=== PATIENT | male | born 1965 | race Caucasian/White ===

== ENCOUNTER → 2020-11-21 10:13 | Outpatient (CLI) | payer OTHER, SELFPAY ==
[2020-11-21 11:44] LABS: Add Manual Diff / Slide Review NO; Basophils Absolute Auto 100 /uL (0-100); Basophils Percent Auto 0.4 % (0-2); Eosinophils Absolute Auto 300 /uL (0-450); Eosinophils Percent Auto 1.7 % (2-4); Hematocrit 46.1 % (41-53); Hemoglobin 15.8 g/dL (13.5-17.5); Lymphocytes Absolute Auto 2400 /uL (1100-4500); Lymphocytes Percent Auto 14.3 % (25-40); Mean Corpuscular HGB Conc 34.3 % (30-36); Mean Corpuscular Hemoglobin 33.2 PG (26-34); Mean Corpuscular Volume 96.8 fL (80-100); Monocytes Absolute Auto 1200 /uL (0-900); Monocytes Percent Auto 7.4 % (3-14); Neutrophils Absolute Auto 12900 /uL (1500-7000); Neutrophils Percent Auto 76.2 % (50-75); Platelet Count 334 X10^3/uL (150-400); Red Blood Cell Count 4.76 X10^6/uL (4.5-5.9); Red Cell Distribution Width 12.9 % (11.6-14.8); White Blood Cell Count 16.9 X10^3/uL (4.5-11.0)
[2020-11-21 12:23] LABS: Alanine Aminotransferase 16 IU/L (<50); Albumin 4.7 g/dL (3.5-5.0); Albumin Globulin Ratio 1.4 (1.0-2.8); Alkaline Phosphatase 126 U/L (38-126); Aspartate Aminotransferase 26 IU/L (17-59); BUN Creatinine Ratio 23.6 (6-22); Bilirubin Total 0.3 mg/dL (0.2-1.3); Blood Urea Nitrogen 26 mg/dL (9-20); Carbon Dioxide 27 mmol/L (22-32); Chloride 99 mmol/L (98-107); Cholesterol 192 mg/dL (140-199); Estimated Glomerular Filt Rate > 60.0 mL/min (>60); Globulin 3.4 g/dL (1.7-4.1); Glucose 100 mg/dL (70-100); HDL Cholesterol 76 mg/dL (40-60); HEMOLYSIS < 15 (0-50); LDL Cholesterol Calculated 72 mg/dL (<100); Potassium 4.5 mmol/L (3.4-5.1); Sodium 133 mmol/L (137-145); Total Protein 8.1 g/dL (6.3-8.2); Triglycerides 220 mg/dL (35-150)
[2020-11-21 12:24] LABS: Vitamin D 25 Hydroxy (D3) 15.8 ng/mL (30.0-100.0)
[2020-11-21 12:54] LABS: Prostate Specific Antigen Scrn 0.407 ng/mL (0.1-4.0)
[2020-11-21 13:13] LABS: Vitamin B12 496 pg/mL (239-931)
== END ==
PROVIDERS: PCP Student in an Organized Health Care Education/Training Program; Referring Provider Student in an Organized Health Care Education/Training Program; Visit Provider Student in an Organized Health Care Education/Training Program
DX: Z90.49 Acquired absence of other specified parts of digestive tract (principal); Z13.220 Encounter for screening for lipoid disorders; Z83.2 Family history of diseases of the blood and blood-forming organs and certain disorders involving the immune mechanism; Z12.5 Encounter for screening for malignant neoplasm of prostate; K51.90 Ulcerative colitis, unspecified, without complications
CPT/HCPCS: 36415; 80053; 80061; 82306; 82607; 85025; G0103

== ENCOUNTER → 2020-12-28 10:47 | Outpatient (CLI) | payer OTHER, SELFPAY ==
[2020-12-28 16:15] LABS: Vitamin D 25 Hydroxy (D3) < 12.8 ng/mL (30.0-100.0)
== END ==
PROVIDERS: PCP Student in an Organized Health Care Education/Training Program; Referring Provider Student in an Organized Health Care Education/Training Program; Visit Provider Student in an Organized Health Care Education/Training Program
DX: E55.9 Vitamin D deficiency, unspecified (principal)
CPT/HCPCS: 36415; 82306

== ENCOUNTER → 2021-03-20 09:51 | Outpatient (CLI) | payer OTHER, SELFPAY ==
[2021-03-20 12:05] LABS: Vitamin D 25 Hydroxy (D3) 37.9 ng/mL (30.0-100.0)
[2021-03-20 12:42] LABS: Folate 6.4 ng/mL (2.76-20.0)
[2021-03-21 19:01] LABS: Calcium 9.3 mg/dL (8.7-10.2); Parathyroid Hormone, Intact 45 pg/mL (15-65)
== END ==
PROVIDERS: PCP Student in an Organized Health Care Education/Training Program; Referring Provider Student in an Organized Health Care Education/Training Program; Visit Provider Student in an Organized Health Care Education/Training Program
DX: E72.11 Homocystinuria (principal); E55.9 Vitamin D deficiency, unspecified
CPT/HCPCS: 36415; 82306; 82310; 82746; 83970

== ENCOUNTER → 2022-03-28 10:56 | Outpatient (CLI) | payer OTHER, SELFPAY ==
[2022-03-28 13:21] LABS: HEMOLYSIS < 15 (0-50)
[2022-03-28 20:16] LABS: Vitamin D 25 Hydroxy (D3) 23.2 ng/mL (30.0-100.0)
[2022-03-29 10:26] LABS: Sodium 138 mmol/L (137-145)
[2022-03-29 10:27] LABS: Potassium 3.7 mmol/L (3.4-5.1)
[2022-03-29 10:28] LABS: Chloride 102 mmol/L (98-107)
[2022-03-29 10:29] LABS: Carbon Dioxide 28 mmol/L (22-32)
[2022-03-29 10:33] LABS: Blood Urea Nitrogen 11 mg/dL (9-20)
[2022-03-29 10:35] LABS: BUN Creatinine Ratio 12.5 (6-22); Estimated Glomerular Filt Rate > 60 mL/min (>60)
[2022-03-29 10:36] LABS: Glucose 80 mg/dL (70-100)
[2022-03-29 10:37] LABS: Calcium 9.4 mg/dL (8.4-10.2)
== END ==
PROVIDERS: PCP Student in an Organized Health Care Education/Training Program; Referring Provider Student in an Organized Health Care Education/Training Program; Visit Provider Student in an Organized Health Care Education/Training Program
DX: E55.9 Vitamin D deficiency, unspecified (principal); E87.1 Hypo-osmolality and hyponatremia; K51.90 Ulcerative colitis, unspecified, without complications; Z12.5 Encounter for screening for malignant neoplasm of prostate
CPT/HCPCS: 36415; 80048; 82306; G0103

== ENCOUNTER 2023-03-24 06:32 | Emergency (ER) | payer MEDICAID, SELFPAY ==
[2023-03-24 06:44] VITALS: BP 103/67; PULSE 84; RESP 16; TEMP 36.8; O2SAT 97; BMI 19.9
--- NOTE | 2023-03-24 06:51 | DI.US.S_ITS ---
PROCEDURE: US PERIPH VENOUS LOW EXTREM RT INDICATIONS: swelling TECHNIQUE: Real-time imaging, as well as color and pulse Doppler interrogation, were performed of the lower extremity deep veins from the inguinal ligament to the popliteal fossa. COMPARISON: None. FINDINGS: The common femoral, femoral and popliteal veins are normally compressible, and free of intraluminal thrombus. Color and pulse Doppler demonstrate normal phasic intraluminal flow. There is normal augmentation response to distal compression maneuver. IMPRESSION: Negative right lower extremity duplex venous ultrasound for DVT. Dictated by: Legihton Smith M.D. on 03/24/2023 at 8:21 Approved by: Leighton Smith M.D. on 03/24/2023 at 8:22
--- NOTE | 2023-03-24 06:51 | DI.RAD.S_ITS ---
PROCEDURE: XR CHEST 1V INDICATIONS: chest pain TECHNIQUE: One view of the chest was acquired. COMPARISON: None. FINDINGS: Surgical changes and devices: None. Lungs and pleura: Lungs are clear. No pleural effusions or pneumothorax. Mediastinum: Mediastinal contours appear normal. Heart size is normal. Bones and chest wall: No suspicious bony lesions. Overlying soft tissues appear unremarkable. IMPRESSION: No acute cardiopulmonary abnormality. Approved by: Sim Magana M.D. on 03/24/2023 at 8:06
[2023-03-24 07:00] VITALS: BP 112/69; PULSE 81; O2SAT 97
[2023-03-24] MEDS: SODIUM CHLORIDE 0.9% 1,000 ML 150 ML IV (07:09)
[2023-03-24 07:17] LABS: Add Manual Diff / Slide Review NO; Basophils Absolute Auto 100 /uL (0-100); Eosinophils Absolute Auto 300 /uL (0-450); Eosinophils Percent Auto 3.1 % (2-4); Hematocrit 30.5 % (41-53); Hemoglobin 10.5 g/dL (13.5-17.5); Lymphocytes Absolute Auto 1800 /uL (1100-4500); Mean Corpuscular HGB Conc 34.5 % (30-36); Mean Corpuscular Hemoglobin 35.6 PG (26-34); Mean Corpuscular Volume 103.3 fL (80-100); Monocytes Absolute Auto 900 /uL (0-900); Monocytes Percent Auto 9.7 % (3-14); Neutrophils Absolute Auto 6400 /uL (1500-7000); Neutrophils Percent Auto 67.2 % (50-75); Platelet Count 257 X10^3/uL (150-400); Red Blood Cell Count 2.95 X10^6/uL (4.5-5.9); Red Cell Distribution Width 13.7 % (11.6-14.8); White Blood Cell Count 9.5 X10^3/uL (4.5-11.0)
[2023-03-24 07:19] LABS: INR 0.9 (0.9-1.3); Prothrombin Time 9.9 SECONDS (10.1-12.7)
[2023-03-24 07:22] LABS: PTT Partial Thromboplastin Tim 28 SECONDS (26-36)
[2023-03-24 07:23] LABS: Alanine Aminotransferase 22 IU/L (<50); Albumin 3.5 g/dL (3.5-5.0); Albumin Globulin Ratio 1.3 (1.0-2.8); Alkaline Phosphatase 78 U/L (38-126); Aspartate Aminotransferase 34 IU/L (17-59); BUN Creatinine Ratio 16.5 (6-22); Bilirubin Total 0.2 mg/dL (0.2-1.3); Blood Urea Nitrogen 14 mg/dL (9-20); Calcium 8.7 mg/dL (8.4-10.2); Carbon Dioxide 25 mmol/L (22-32); Chloride 105 mmol/L (98-107); Creatine Kinase 62 U/L (55-170); Estimated Glomerular Filt Rate > 60 mL/min (>60); Globulin 2.6 g/dL (1.7-4.1); Glucose 87 mg/dL (70-100); HEMOLYSIS < 15 (0-50); Lipase 174 U/L (23-300); Potassium 3.8 mmol/L (3.4-5.1); Sodium 136 mmol/L (137-145); Total Protein 6.1 g/dL (6.3-8.2)
[2023-03-24 07:30] VITALS: BP 120/78; PULSE 76; RESP 18; O2SAT 97
[2023-03-24 07:32] LABS: NT-proBNP (BNP-Adult 18+) 462 pg/mL (<125)
[2023-03-24 07:34] LABS: Troponin I < 0.012 ng/mL (0.01-0.034)
--- NOTE | 2023-03-24 07:52 | ED.EXTPRO ---
HPI - Extremity Problem General Chief complaint: Extremity Problem,Nontraumatic Stated complaint: rt foot swollen rt and left leg swollen Time Seen by Provider: 03/24/23 06:41 Source: patient Mode of arrival: Ambulatory History of Present Illness HPI Narrative: 57-year-old male smoker with history of colon CA, ulcerative colitis, total colectomy, varicose veins, vitamin D deficiency and prior heavy alcohol abuse presents with some relatively painless swelling in his right lower extremity over the past week or so. Additionally he states he is had some swelling in his left leg as well. He denies any dizziness, weakness or lightheadedness. He denies chest pain or shortness of breath. He denies any exertional fatigue or exercise intolerance. He denies nausea, vomiting or diarrhea. He denies any weight gain. He does state that he has been on his feet much more recently due to his preparing his home to be sold. He denies any trauma or injury nor any recent travel. He denies fever or chills. He states that a few years ago he had a wellness check which resulted in further testing and the suggestion that he had some poor blood flow in his legs. Related Data Previous Rx's Medication Instructions Recorded furosemide 40 mg tablet (Lasix) 40 mg PO DAILY #5 tabs 03/24/23 Allergies Allergy/AdvReac Type Severity Reaction Status Date / Time Sulfa (Sulfonamide Allergy Mild RASH, LONG Verified 03/28/22 10:30 Antibiotics) TIME ALLERGY bee pollen Allergy Unknown Verified 03/28/22 10:30 Review of Systems Review of Systems Narrative: GENERAL: Denies chills, fatigue, malaise, fever, sweats. HEENT: Denies sinus pain, ear pain, sore throat, difficulty swallowing, dizziness. RESPIRATORY: Denies dyspnea, cough, wheezing, hemoptysis, sputum. CARDIOVASCULAR: See HPI GASTROINTESTINAL: Denies nausea, vomiting, abdominal pain, diarrhea, constipation, melena. : Denies dysuria, frequency, incontinence, hematuria, urinary retention. MUSCULOSKELETAL: denies weakness, joint pain, or bony pain SKIN: See HPI NEUROLOGIC: Denies weakness, headache, numbness, change in speech, confusion, seizures, incoordination. PSYCHIATRIC: No concerning psychosocial issues. 12 point review of systems is negative except for those stated above Patient History Medical History Colorectal cancer Homocysteinemia Surgical History History of total colectomy Social History Smoking Status: Current every day smoker Smoking Status: Current every day smoker alcohol intake frequency: 3 or more drinks per day Substance Use Type: does not use Exam Narrative Exam Narrative: GENERAL: [57] year old patient appears stated age. Well-developed patient, in mild distress. HEAD: Atraumatic. Normocephalic. EYES: Pupils equal round and reactive. Extraocular motions intact. No scleral icterus. No injection or drainage. ENT: Nose without bleeding, purulent drainage. Throat without erythema, tonsillar hypertrophy or exudate. Airway patent. NECK: Trachea midline. Non tender CARDIOVASCULAR: Regular rate and rhythm without murmurs, gallops, or rubs. RESPIRATORY: Clear to auscultation. Breath sounds equal bilaterally. No wheezes, rales, or rhonchi. GASTROINTESTINAL: Abdomen soft, non-tender, nondistended. EXTREMITIES: Bilateral lower extremity 1+ pitting edema. No redness, no pain, no fluctuance or induration, no breaks in the skin. Cap refill is intact, dorsalis pedis pulses are easily found with bedside Doppler. He does have some numbness in his toes. BACK: Nontender without deformity or crepitance. No flank tenderness. NEURO: AOx3. SKIN: No rash or erythema of visible areas Initial Vital Signs Initial Vital Signs: Vital Signs Temperature 98.2 F 03/24/23 06:44 Pulse Rate 84 03/24/23 06:44 Respiratory Rate 16 03/24/23 06:44 Blood Pressure 103/67 03/24/23 06:44 Pulse Oximetry 97 03/24/23 06:44 Oxygen Delivery Method Room Air 03/24/23 06:44 Course Orders Ordered: ED Orders 03/24/23 06:51 US periph venous low extrem rt Stat XR chest 1V Stat EKG-12 Lead Stat 03/24/23 07:02 Complete Blood Count AUTO DIFF Stat Comprehensive Metabolic Panel Stat Lipase Stat NT-proBNP (BNP-Adult 18+) Stat PTT Partial Thromboplastin Juan Carlos Stat Prothrombin Time INR Stat Troponin & CK Cardiac Panel Stat Discontinued Medications Sodium Chloride (Normal Saline 0.9%) 1,000 mls @ 150 mls/hr IV CONT TANIA Last Admin: 03/24/23 07:09 Dose: 150 mls/hr Documented By: Vital Signs Vital signs: Vital Signs - 8 hr 03/24/23 06:44 03/24/23 07:00 03/24/23 07:00 Temperature 98.2 F Pulse Rate 84 81 Respiratory Rate 16 Blood Pressure 103/67 112/69 Pulse Oximetry 97 97 Oxygen Delivery Method Room Air Room Air 03/24/23 07:30 03/24/23 07:30 03/24/23 08:00 Temperature Pulse Rate 76 Respiratory Rate 18 Blood Pressure 120/78 122/83 Pulse Oximetry 97 Oxygen Delivery Method Room Air 03/24/23 08:00 Temperature Pulse Rate 82 Respiratory Rate 18 Blood Pressure Pulse Oximetry 98 Oxygen Delivery Method Room Air MDM - Extremity (Nontraumatic) Lab Data 03/24/23 07:02 03/24/23 07:02 Labs: Lab Results 03/24/23 03/24/23 03/24/23 Range/Units 07:02 07:02 07:02 WBC 9.5 (4.5-11.0) X10^3/uL RBC 2.95 L (4.5-5.9) X10^6/uL Hgb 10.5 L (13.5-17.5) g/dL Hct 30.5 L (41-53) % MCV 103.3 H (80-100) fL MCH 35.6 H (26-34) PG MCHC 34.5 (30-36) % RDW 13.7 (11.6-14.8) % Plt Count 257 (150-400) X10^3/uL Neut % (Auto) 67.2 (50-75) % Lymph % (Auto) 19.0 L (25-40) % [place] % (Auto) 9.7 (3-14) % Eos % (Auto) 3.1 (2-4) % Baso % (Auto) 1.0 (0-2) % Neut # (Auto) 6400 (0008-7393) /uL Lymph # (Auto) 1800 (5591-6809) /uL [place] # (Auto) 900 (0-900) /uL Eos # (Auto) 300 (0-450) /uL Baso # (Auto) 100 (0-100) /uL PT 9.9 L (10.1-12.7) SECONDS INR 0.9 (0.9-1.3) APTT 28 (26-36) SECONDS Sodium 136 L (137-145) mmol/L Potassium 3.8 (3.4-5.1) mmol/L Chloride 105 (98-107) mmol/L Carbon Dioxide 25 (22-32) mmol/L BUN 14 (9-20) mg/dL Creatinine 0.85 (0.66-1.25) mg/dL Estimated GFR > 60 (>60) mL/min BUN/Creatinine Ratio 16.5 (6-22) Glucose 87 (70-100) mg/dL Calcium 8.7 (8.4-10.2) mg/dL Total Bilirubin 0.2 (0.2-1.3) mg/dL AST 34 (17-59) IU/L ALT 22 (<50) IU/L Alkaline Phosphatase 78 (38-126) U/L Total Creatine Kinase 62 (55-170) U/L CK-MB (CK-2) TNP CK-MB (CK-2) Rel Index TNP Troponin I < 0.012 (0.01-0.034) ng/mL NT-Pro-B Natriuret Pep (<125) pg/mL Total Protein 6.1 L (6.3-8.2) g/dL Albumin 3.5 (3.5-5.0) g/dL Globulin 2.6 (1.7-4.1) g/dL Albumin/Globulin Ratio 1.3 (1.0-2.8) Lipase 174 (23-300) U/L 03/24/23 Range/Units 07:02 WBC (4.5-11.0) X10^3/uL RBC (4.5-5.9) X10^6/uL Hgb (13.5-17.5) g/dL Hct (41-53) % MCV (80-100) fL MCH (26-34) PG MCHC (30-36) % RDW (11.6-14.8) % Plt Count (150-400) X10^3/uL Neut % (Auto) (50-75) % Lymph % (Auto) (25-40) % [place] % (Auto) (3-14) % Eos % (Auto) (2-4) % Baso % (Auto) (0-2) % Neut # (Auto) (6851-2394) /uL Lymph # (Auto) (6584-2099) /uL [place] # (Auto) (0-900) /uL Eos # (Auto) (0-450) /uL Baso # (Auto) (0-100) /uL PT (10.1-12.7) SECONDS INR (0.9-1.3) APTT (26-36) SECONDS Sodium (137-145) mmol/L Potassium (3.4-5.1) mmol/L Chloride (98-107) mmol/L Carbon Dioxide (22-32) mmol/L BUN (9-20) mg/dL Creatinine (0.66-1.25) mg/dL Estimated GFR (>60) mL/min BUN/Creatinine Ratio (6-22) Glucose (70-100) mg/dL Calcium (8.4-10.2) mg/dL Total Bilirubin (0.2-1.3) mg/dL AST (17-59) IU/L ALT (<50) IU/L Alkaline Phosphatase (38-126) U/L Total Creatine Kinase (55-170) U/L CK-MB (CK-2) CK-MB (CK-2) Rel Index Troponin I (0.01-0.034) ng/mL NT-Pro-B Natriuret Pep 462 H (<125) pg/mL Total Protein (6.3-8.2) g/dL Albumin (3.5-5.0) g/dL Globulin (1.7-4.1) g/dL Albumin/Globulin Ratio (1.0-2.8) Lipase (23-300) U/L MDM Narrative Medical decision making narrative: CC: 57-year-old male with bilateral lower extremity swelling Complicating co-morbidities: History of Heavy alcohol abuse, age greater than 50, colon cancer Data collected from: Patient Medical records reviewed: Prior notes reviewed in our EMR Differential considered, but not limited to: DVT versus cellulitis versus renal failure versus heart failure versus dependent edema versus other Exam documented above, pertinent findings include: Heart rate regular, lungs clear and nonlabored. Abdomen soft and nontender. Bilateral lower extremity pitting edema, warm, pink and dry, cap refill intact, Doppler pulses Lab Test results independently reviewed as above. Pertinent findings: No leukocytosis or left shift. Minimal relative anemia, platelets within normal, MCV elevated at 103.3. Electrolytes and renal function within normal. BNP slightly elevated Independently reviewed EKG: [0741] EKG is normal sinus rhythm rate [78 ] and free of any signs of ischemia or ectopy. No ST segmental elevation or depression. No T wave inversions Imaging studies independently reviewed: No evidence of DVT Discussion: Very pleasant gentleman with a week or so of increasing swelling and lower extremities in the absence of fever, chills, shortness of breath or fatigue. He has no trauma or injury. Multiple diagnoses considered as noted above. Given bilateral presentation considerations would include dependent edema which is certainly considered given his report of being on his feet and more active than normal over the past week or so. Also renal failure, heart failure, liver failure considered. He does have a strong history of alcohol abuse and an elevated BNP raising the question of possible mild early CHF. In addition to recommending elevating his lower extremities I did a short course of Lasix. There is no respiratory distress or indication for further emergent evaluation in this regard. Ultrasound shows no evidence of DVT. Cellulitis considered but thought extremely unlikely given lack of fever or chills, lack of pain, redness, warmth or other classic findings. Patient is stable and appropriate for discharge at this time. He plans to call his primary care provider later today to schedule an appointment later this week. Return precautions including increasing pain, redness, warmth, systemic complaints such as fever or chills, difficulty breathing or other bothersome symptoms Disposition: see below, along with detailed discharge instructions that have been reviewed with patient as well as indications for ED re-evaluation and additional outpatient follow up Discharge Plan Departure Patient Disposition: Home Clinical Impression: Bilateral leg edema Instructions: DI for Peripheral Edema -- Bilateral Activity Restrictions/Additional Instructions: *You have been diagnosed with [bilateral lower extremity edema. As we discussed your history and physical exam are reassuring. Ultrasound shows no evidence of clot. The swelling could very well be due to being on your feet more than normal.] *What to do: *Please continue to take your regular medications as directed. [x ] New medication prescriptions sent to your pharmacy: [ [facility]] [ ] New medication written as a paper prescription [ ] No new medications given *Please follow up with your primary care provider in 2-3 days, call for an appointment. Let them know you were seen in the Emergency Department and that we ask that you be seen in follow up. We will electronically transmit a record of today's note if your PCP is in our system *Return to Emergency Department if you should have any new, worsening or concerning symptoms, such as [fever greater than 101 F, shaking chills, worsening pain, persistent vomiting or other bothersome symptoms] Prescriptions: New furosemide [Lasix] 40 mg tablet 40 mg PO DAILY Qty: 5 0RF Referrals: Tres Alcala MD [Primary Care Provider] - Stand Alone Forms: Patient Portal/API
[2023-03-24 08:00] VITALS: BP 122/83; PULSE 82; RESP 18; O2SAT 98
== END 2023-03-24 08:18 | disposition home or self-care (01) ==
PROVIDERS: Emergency Medicine; Emergency Provider Emergency Medicine; PCP Student in an Organized Health Care Education/Training Program
DX: R60.0 Localized edema (principal)
CPT/HCPCS: 36415; 71045; 80053; 82550; 83690; 83880; 84484; 85025; 85610; 85730; 93005; 93010; 93971; 99284

== ENCOUNTER → 2023-04-16 11:55 | Outpatient (CLI) | payer MEDICAID, SELFPAY ==
[2023-04-16 13:17] LABS: Reticulocyte Count, Percent 1.8 % (0.9-2.6)
[2023-04-16 13:28] LABS: HEMOLYSIS < 15 (0-50); Iron 141 ug/dL (49-181)
[2023-04-16 13:39] LABS: Percent Iron Saturation 44 % (20-50); Total Iron Binding Capacity 322 ug/dL (261-462); Transferrin 250 mg/dL (206-381)
[2023-04-16 13:55] LABS: TSH w/ Reflex to FT4 0.53 uIU/mL (0.47-4.68)
[2023-04-16 13:58] LABS: Ferritin 215 ng/mL (18-464)
[2023-04-16 14:29] LABS: Folate 7.1 ng/mL (2.76-20.0); Vitamin B12 677 pg/mL (239-931)
== END ==
PROVIDERS: PCP Nurse Practitioner Family; Referring Provider Nurse Practitioner Family; Visit Provider Nurse Practitioner Family
DX: D64.9 Anemia, unspecified (principal)
CPT/HCPCS: 36415; 82607; 82728; 82746; 83540; 83550; 84443; 85045

== ENCOUNTER → 2023-04-25 09:16 | Outpatient (CLI) | payer MEDICAID, SELFPAY ==
--- NOTE | 2023-04-25 | DI.US.S_ITS ---
PROCEDURE: US ABDOMEN LIMITED INDICATIONS: ALCOHOL USE TECHNIQUE: Real-time focused scanning was performed of the abdomen, with image documentation. COMPARISON: [facility], CT, ABDOMEN/PELVIS WITH CONTRAST, 01/12/2013, 21:30. [facility], CT, ABDOMEN/PELVIS WITH CONTRAST, 07/02/2017, 16:32. FINDINGS: Liver measures 12 cm. Echogenicity is within normal limits. Multiple hyperechoic lesions, largest anterior to the caudate lobe measuring about 10 mm. A right lobe lesion measures about 8 mm. Gallbladder is within normal limits. No focal tenderness. CBD measures 5 mm. Pancreas is partially seen, unremarkable. No pathologic free fluid. IMPRESSION: No acute sonographic abnormality. Overall liver echogenicity is within normal limits. Multiple small hyperechoic lesions throughout the liver, most commonly benign cavernous hemangiomas. Some of which may have been present on prior limited single phase CT. If there is concern for chronic liver disease or malignancy, liver MRI could be ordered. Dictated by: Star Ma M.D. on 04/25/2023 at 14:52 Approved by: Star Ma M.D. on 04/25/2023 at 14:55
== END ==
PROVIDERS: PCP Nurse Practitioner Family; Referring Provider Nurse Practitioner Family; Visit Provider Nurse Practitioner Family
DX: K76.9 Liver disease, unspecified (principal); F10.90 Alcohol use, unspecified, uncomplicated
CPT/HCPCS: 76705

== ENCOUNTER → 2023-05-01 08:10 | Outpatient (CLI) | payer MEDICAID, SELFPAY ==
--- NOTE | 2023-05-01 08:14 | DI.ECHO.S_ITS ---
[facility] +---------+ : : [address] [place] : : : : [id number] : : : : Phone: [phone]+ Echocardiogram Report + + :Name: MARY DE LA GARZA Study Date: 05/01/2023 Height: 69 in : :[facility] ReadingLocation: Weight: 133 lb : : Gender: Male BSA: 1.7 m2 : :: 1965 Age: 57 yrs BP: 112/76 mmHg: :Reason For Study: Localized Edema : :Ordering Physician: Letitia, : :Cecile Performed By: Hanna Valentino : :Referring: GARRY RILEY : + + Interpretation Summary The ejection fraction is estimated to be 55-60%. There is no significant valvular heart disease. Procedure: A two-dimensional transthoracic echocardiogram with color flow and Doppler was performed. The study quality was technically adequate. There is no prior echocardiogram noted for this patient. The patient was in normal sinus rhythm during the exam. Left Ventricle: The left ventricle is normal in size. The ejection fraction is estimated to be 55-60%. There are no obvious focal wall motion abnormalities noted but poor endocardial definition reduces the sensitivity for the detection of such. Diastolic parameters suggest a pseudonormalization pattern, consistent with probable elevated filling pressures. Right Ventricle: The right ventricle is normal size. The right ventricular systolic function is normal. Atria: The left atrial size is normal. Right atrial size is normal. There is no Doppler evidence for an interatrial shunt. Mitral Valve: The mitral valve is normal. There is no mitral valve stenosis. There is trace mitral regurgitation. Aortic Valve: The aortic valve is trileaflet. The aortic valve opens well. There is no aortic valve stenosis. No aortic regurgitation is present. Tricuspid Valve: The tricuspid valve is normal. There is no tricuspid stenosis. There is trace tricuspid regurgitation. The right ventricular systolic pressure is estimated to be at least 21 mmHg based on an estimated right atrial pressure of 3 mm Hg. Pulmonic Valve: The pulmonic valve leaflets are thin and pliable; valve motion is normal. There is no pulmonic valvular stenosis. There is no pulmonic valvular regurgitation. Great Vessels: The aortic root is normal size. The ascending aorta is normal in size. The pulmonary artery is normal size. The IVC is of normal diameter and collapses greater than 50% with a sniff. This suggests a low right atrial pressure of 3 mm Hg. Pericardium/ Pleura There is no pericardial effusion. MMode/2D Measurements & Calculations LVIDd: 4.6 cm LVOT diam: 2.1 cm LVIDs: 3.2 cm Ao root diam: 3.7 cm FS: 30.4 % asc Aorta Diam: 3.5 cm IVSd: 1.0 cm LVPWd: 1.1 cm LV henderson. diameter/BSA (cm/m^2): 2.6 LV sys. diameter/BSA (cm/m^2): 1.8 LA A2 area: 17.5 cm2 RA long axis: 5.0 cm LA A4 area: 15.7 cm2 RA area: 14.7 cm2 LA length (vol): 5.3 cm RA vol: 37.0 ml LA vol: 43.8 ml RA : 21.3 ml/m2 LA vol index: 25.2 ml/m2 RVD1 (basal): 3.8 cm LVLs ap4: 6.2 cm LVLd ap2: 7.0 cm TAPSE_phl: 2.5 cm LVLs ap2: 6.2 cm Doppler Measurements & Calculations Ao V2 max: 102.0 cm/sec LVOT Max Anthony: 99.8 cm/sec Ao V2 mean: 77.5 cm/sec LV V1 max P.0 mmHg Ao max P.0 mmHg LV V1 VTI: 19.4 cm Ao mean P.0 mmHg CHANCE(I,D): 2.9 cm2 Ao V2 VTI: 23.1 cm CHANCE(V,D): 3.4 cm2 sev ratio: 0.84 CHANCE indexed to BSA (cm^2/m^2): 1.7 MV E max anthony: 81.2 cm/sec TR max anthony: 214.0 cm/sec MV A max anthony: 65.8 cm/sec TR max P.4 mmHg MV E/A: 1.2 PA V2 max: 77.2 cm/sec Med Peak E' Anthony: 8.1 cm/sec PA V2 mean: 59.2 cm/sec E/E' med: 10.0 PA mean P.0 mmHg Lat Peak E' Anthony: 10.6 cm/sec PA pr(Accel): 6.5 mmHg E/E' lat: 7.7 E/e' average: 8.8 MV dec time: 0.18 sec SV(LVOT): 67.2 ml AV VR_phl: 0.98 CHANCE(VTI)/BSA_phl: 1.7 MV P1/2t-pr_phl: 51.0 msec Reading Physician:02:19 PM
== END ==
PROVIDERS: PCP Nurse Practitioner Family; Referring Provider Family Medicine; Visit Provider Family Medicine
DX: R60.0 Localized edema (principal); R79.89 Other specified abnormal findings of blood chemistry; F17.200 Nicotine dependence, unspecified, uncomplicated
CPT/HCPCS: 93306

== ENCOUNTER → 2023-05-22 07:49 | Outpatient (CLI) | payer OTHER, MEDICAID, SELFPAY ==
--- NOTE | 2023-05-22 07:50 | DI.MRI.S_ITS ---
PROCEDURE: MR ABDOMEN LIVER PROTOCOL INDICATIONS: small lesions, abnormal US TECHNIQUE: Coronal HASTE, axial 2D FLASH in- and [id number]; axial breath-hold T2 FSE. Dynamic axial VIBE during the administration of contrast; post-contrast coronal VIBE or 2D FLASH with fat saturation from the hepatic dome to the iliac crests. Optional diffusion weighted imaging and ADC may be performed. COMPARISON: [facility], [place], US ABDOMEN LIMITED, 04/25/2023, 9:33. FINDINGS: Image quality: Excellent. Lung bases: No basal pleural effusions. Heart size is normal. Liver: In segment 7/8 of the liver, there is a T2 intermediate, T1 hypointense lesion with delayed filling measuring 0.7 cm, likely corresponding to the hyperechoic lesion seen on comparison ultrasound. Additionally, in segment 5/8, there is a 5 mm T2 hyperintense cystic lesion (series 4, image 14), which is benign. Gallbladder and biliary tree: No gallstones or biliary dilation. Spleen: Normal size. Pancreas: No ductal dilation. Probable pancreatic divisum. Adrenal glands: No adrenal nodules. Kidneys: No hydronephrosis. No solid mass. No complex renal cysts which requires follow-up. Nodes and vessels: No retroperitoneal or mesenteric adenopathy by size criteria. Aorta and inferior vena cava are normal in size. Bowel and peritoneum: Unenhanced bowel loops are normal in caliber. No free fluid. Bones and soft tissues: No ventral hernias. Bone marrow is normal in overall signal. IMPRESSION: The previously described hyperechoic lesion in the right hepatic lobe corresponds to a T2 intermediate, T1 hypointense lesion with delayed flash filling. Findings are most consistent with a benign hemangioma. Probable pancreatic divisum. Dictated by: Santos Hoffman M.D. on 05/22/2023 at 11:18 Approved by: Santos Hoffman M.D. on 05/22/2023 at 11:23
== END ==
PROVIDERS: PCP Nurse Practitioner Family; Referring Provider Nurse Practitioner Family; Visit Provider Nurse Practitioner Family
DX: K76.9 Liver disease, unspecified (principal); R93.2 Abnormal findings on diagnostic imaging of liver and biliary tract; F17.200 Nicotine dependence, unspecified, uncomplicated; F10.90 Alcohol use, unspecified, uncomplicated
CPT/HCPCS: 74183; A9579